=== PATIENT | male | born 1995 | race Caucasian/White ===

== ENCOUNTER 2017-03-02 07:49 | Inpatient (IN) | payer OTHER ==
[~2017-03-02] VITALS: Ht 172.7 cm; Wt 49.9 kg
[~2017-03-02 07:49] MED LIST: CLARITIN5 MG PO; NABUMETONE500 MG PO; PERCOCET 5-3251 EACH PO; ZYRTEC10 M2 PO
== END 2017-03-04 16:30 | disposition home or self-care (01) | DRG 101 ==
LOC: ER 07:49 → MEDI 19:30
PROC: BW28ZZZ Computerized Tomography (CT Scan) of Head (ICD-10-PCS; principal; 2017-03-02)
PROC: B030ZZZ Magnetic Resonance Imaging (MRI) of Brain (ICD-10-PCS; 2017-03-02)
PROC: 4A00X4Z Measurement of Central Nervous Electrical Activity, External Approach (ICD-10-PCS; 2017-03-04)
DX: G40.89 Other seizures (principal)
CPT/HCPCS: 70553